=== PATIENT | male | born 1950 | race Caucasian/White ===

== ENCOUNTER 2017-07-18 23:35 | Emergency (ER) | payer MEDICARE ==
[2017-07-18 23:45] VITALS: BP 160/88; RESP 18; TEMP 97.4; O2SAT 97; BMI 27.3
[2017-07-18 23:48] VITALS: PULSE 73
--- NOTE | 2017-07-19 00:43 | ED PDOC ---
Arrival/HPI - General Chief Complaint: Upper Extremity Problem/Injury Time Seen by Provider: 07/18/17 23:57 Historian: Patient - History of Present Illness Narrative History of Present Illness (Text): 07/19/17 0:03 67 year old male, with no significant past medical history, presents to the emergency department complaining of left shoulder discomfort radiating to the left upper arm that began a couple days ago. Patient states that he is unable to lift left arm because of the pain the shoulder produces. He states he felt a little nauseas earlier today due to the pain. Patient denied any history of trauma. Patient denies any chest pain, shortness of breath, vomiting, diarrhea, back pain, neck pain, headache, dizziness, or any other complaints. Time/Duration: Other (couple days) Symptom Onset: Sudden Symptom Course: Unchanged Activities at Onset: Light Context: Home Past Medical History - Provider Review Nursing Documentation Reviewed: Yes - Cardiac Hx Cardiac Disorders: No - Pulmonary Hx Respiratory Disorders: No - Neurological Hx Neurological Disorder: No - HEENT Hx HEENT Disorder: No - Renal Hx Renal Disorder: No - Endocrine/Metabolic Hx Endocrine Disorders: No - Hematological/Oncological Hx AIDS: No - Integumentary Hx Dermatological Disorder: No - Musculoskeletal/Rheumatological Hx Back Pain: Yes - Gastrointestinal Hx Gastrointestinal Disorders: No - Genitourinary/Gynecological Hx Genitourinary Disorders: No - Psychiatric Hx Psychophysiologic Disorder: No Hx Substance Use: No - Surgical History Hx Appendectomy: Yes Hx Tonsillectomy: Yes - Anesthesia Hx Anesthesia: Yes Family/Social History - Physician Review Nursing Documentation Reviewed: Yes Family/Social History: No Known Family HX Smoking Status: Never Smoked Hx Alcohol Use: No Hx Substance Use: No Allergies/Home Meds Allergies/Adverse Reactions: Allergies No Known Allergies Allergy (Verified 07/18/17 23:45) Review of Systems - Physician Review All systems were reviewed & negative as marked: Yes - Review of Systems Respiratory: absent: SOB Cardiovascular: absent: Chest Pain Gastrointestinal: Nausea. absent: Diarrhea, Vomiting Musculoskeletal: Other (left shoulder pain and arm pain). absent: Back Pain, Neck Pain Physical Exam Vital Signs Reviewed: Yes Vital Signs Temp Pulse Resp BP Pulse Ox 07/18/17 23:45 97.4 F L 73 18 160/88 H 97 07/18/17 23:44 97.4 F L 74 18 160/88 H 97 Temperature: Afebrile Blood Pressure: Hypertensive Pulse: Regular Respiratory Rate: Normal Appearance: Positive for: Well-Appearing, Non-Toxic, Comfortable Pain Distress: None Mental Status: Positive for: Alert and Oriented X 3 - Systems Exam Head: Present: Atraumatic, Normocephalic Pupils: Present: PERRL Extroacular Muscles: Present: EOMI Conjunctiva: Present: Normal Mouth: Present: Moist Mucous Membranes Neck: Present: Normal Range of Motion Respiratory/Chest: Present: Clear to Auscultation, Good Air Exchange. No: Respiratory Distress, Accessory Muscle Use Cardiovascular: Present: Regular Rate and Rhythm, Normal S1, S2. No: Murmurs Abdomen: Present: Normal Bowel Sounds. No: Tenderness, Distention, Peritoneal Signs Back: Present: Normal Inspection Upper Extremity: Present: Neurovascularly Intact, Other (Palpable pain on the left anterior lateral shoulder. Discomfort at any attempt of left shouder abduction. ). No: Cyanosis, Edema Lower Extremity: Present: Normal Inspection. No: Edema Neurological: Present: GCS=15, CN II-XII Intact, Speech Normal Skin: Present: Warm, Dry, Normal Color. No: Rashes Psychiatric: Present: Alert, Oriented x 3, Normal Insight, Normal Concentration Medical Decision Making ED Course and Treatment: 07/19/17 00:10 Impression: 67 year old male presents complaining of left shoulder discomfort radiating to the left upper arm. Denies any history of trauma. Plan: -- Toradol -- Shoulder Left X-ray -- Reassess and disposition Progress Notes: Shoulder Left X-ray Impression: As read by me, No acute processes. - RAD Interpretation Radiology Orders: 07/19/17 00:05 SHOULDER LEFT [RAD] Stat - Medication Orders Current Medication Orders: Discontinued Medications Ketorolac Tromethamine (Toradol) 60 mg IM ONCE ONE Stop: 07/19/17 00:06 Last Admin: 07/19/17 00:33 Dose: 60 mg MAR Pain Assessment Document 07/19/17 00:33 BALBIR (Rec: 07/19/17 00:34 BALBIR [id number]) Pain Reassessment Is this a pain reassessment? No IM Administration Charges Document 07/19/17 00:33 BALBIR (Rec: 07/19/17 00:34 BALBIR [id number]) Charges for Administration # of IM Administrations 1 - Scribe Statement The provider has reviewed the documentation as recorded by the Jay Frausto Provider Scribe Attestation: All medical record entries made by the Yanivibe were at my direction and personally dictated by me. I have reviewed the chart and agree that the record accurately reflects my personal performance of the history, physical exam, medical decision making, and the department course for this patient. I have also personally directed, reviewed, and agree with the discharge instructions and disposition. Disposition/Present on Arrival - Present on Arrival Any Indicators Present on Arrival: No History of DVT/PE: No History of Uncontrolled Diabetes: No Urinary Catheter: No History of Decub. Ulcer: No History Surgical Site Infection Following: None - Disposition Have Diagnosis and Disposition been Completed?: Yes Diagnosis: Shoulder bursitis Disposition: HOME/ ROUTINE Disposition Time: 01:46 Patient Plan: Discharge Condition: GOOD Discharge Instructions (ExitCare): Shoulder Bursitis (ED) Additional Instructions: Take meds as prescribed/follow up with the orthopedist this week Prescriptions: Ketorolac Tromethamine [Toradol] 10 mg PO QID PRN #16 tab PRN Reason: Pain, Moderate (4-7) Referrals: Julio Cesar Benitez DO [Staff Provider] - Follow up with primary Forms: [facility] (Serbian)
--- NOTE | 2017-07-19 08:44 | RAD ---
PROCEDURE: Radiographs of the Left Shoulder HISTORY: shoulder pain COMPARISON: No prior. FINDINGS: BONES: Normal. No fracture. JOINTS: Normal. Glenohumeral and acromioclavicular joints preserved. No osteoarthritis. SOFT TISSUES: Normal. OTHER FINDINGS: None. IMPRESSION: Normal radiographs of the left shoulder.
== END 2017-07-19 02:44 | disposition home or self-care (01) ==
LOC: ED 23:35
DX: M75.52 Bursitis of left shoulder (principal)
CPT/HCPCS: 73030; 96372; 99284; J1885

== ENCOUNTER 2017-12-15 08:34 | Day surgery (SDC) | payer MEDICARE ==
[2017-12-15 08:56] VITALS: BMI 25.0
[2017-12-15 09:02] VITALS: RESP 18; O2SAT 98
[2017-12-15] MEDS ORDERED: Lidocaine 1% Inj (20ml) ONE (09:03)
[2017-12-15] MEDS ORDERED: Bupivacaine 0.5% Inj(30mL) ONE (09:03)
[2017-12-15] MEDS ORDERED: Lidocaine 1% Inj (20ml) INFIL ONE (10:02)
[2017-12-15] MEDS ORDERED: Bupivacaine 0.5% Inj(30mL) INFIL ONE (10:02)
--- NOTE | 2017-12-15 10:22 | PCM.SURG1 ---
Surgeon's Initial Post Op Note - Surgeon's Notes Surgeon: Dr. Meadows C Programmer: Dr. Crenshaw PGY-3 Type of Anesthesia: Local Pre-Operative Diagnosis: Left breast mass Operative Findings: See operative report Post-Operative Diagnosis: Same Operation Performed: Excisional Biopsy of Left breast Mass Specimen/Specimens Removed: Left breast mass Estimated Blood Loss: EBL {In ML}: 2 Blood Products Given: N/A Drains Used: No Drains Post-Op Condition: Good Date of Surgery/Procedure: 12/15/17 Time of Surgery/Procedure: 10:22
[2017-12-15 10:32] VITALS: BP 132/75; PULSE 53; TEMP 97.9
--- NOTE | 2017-12-28 06:24 | OP ---
PROCEDURE DATE: 12/15/2017 PREOPERATIVE DIAGNOSIS: Small mass of the left breast. SURGEON: Martin Meadows MD. SASH MAKER: Dr. Taylor. DESCRIPTION OF PROCEDURE: In the operating room, the patient was identified by name, name of the procedure, laterality, and my gabino. The area was infiltrated with 1% Xylocaine and Marcaine combination, approximately 5 mL. The area was then prepped with chlorhexidine, waiting for 3 minutes, it was draped. After the successful timeout, the incision was made over the mass and it was completely removed. It was probably a sebaceous cyst, awaiting pathology. The area was closed with Vicryl and subcuticular PDS and Dermabond. The patient was taken to same day surgery in good condition. Martin Meadows MD [facility]
== END 2017-12-15 11:01 | disposition home or self-care (01) ==
LOC: SDS 08:34 → OPSURG 08:34
PROVIDERS: ATTEND Surgery
DX: D17.79 Benign lipomatous neoplasm of other sites (principal)

== ENCOUNTER 2018-09-28 06:19 | Day surgery (SDC) | payer MEDICARE ==
[2018-09-21 16:21] VITALS: BMI 27.6
[2018-09-28] MEDS ORDERED: Propofol 10 mg/ml Inj (20 ML) ONE (08:03)
[2018-09-28] MEDS ORDERED: Simethicone 40 mg/0.6 ml Liquid (30 ml) ONE (08:14)
[2018-09-28] MEDS ORDERED: Sodium Chloride 0.9% 1,000 ML IV SCH (08:30)
[2018-09-28 09:22] VITALS: RESP 19; TEMP 97.7
[2018-09-28 10:08] VITALS: BP 118/74; PULSE 55; O2SAT 99
== END 2018-09-28 09:58 | disposition home or self-care (01) ==
LOC: ENDO 06:19
PROVIDERS: ATTEND Specialist
DX: Z12.11 Encounter for screening for malignant neoplasm of colon (principal); K63.5 Polyp of colon; K57.30 Diverticulosis of large intestine without perforation or abscess without bleeding; K64.8 Other hemorrhoids
CPT/HCPCS: 45380; 88305; J2001; J2704; J7030; J7040